=== PATIENT | male | born 1945 | race Two or more races ===

== ENCOUNTER → 2018-01-05 | Outpatient (CLI) | payer MEDICARE ==
[~2018-01-05] MED LIST: AMLO-511 PO; ASCO500 PO; DSS100 PO; FINA5TAB41 PO; LEVO100 PO; METF500T4 PO; MULT1TAB70 PO; TAMS0.4C32 PO; VITA1TAB22 PO; VITA400C70 PO
== END | disposition home or self-care (01) ==
LOC: RADPV 13:15
PROVIDERS: ATTEND Psychiatry & Neurology Neurology
DX: R13.10 Dysphagia, unspecified (principal)
CPT/HCPCS: 74230